=== PATIENT | male | born 1990 | race African-American/Black ===

== ENCOUNTER 2017-06-02 06:11 | Emergency (ER) | payer MEDICARE, MEDICAID ==
[~2017-06-02] VITALS: Ht 167.6 cm; Wt 77.0 kg
[2017-06-02] MEDS ORDERED: IBUPROFEN 600MG TABLET PO ONE (07:15)
[2017-06-02 07:41] VITALS: BP 122/79
== END 2017-06-02 07:59 | disposition home or self-care (01) ==
LOC: ER 07:35
DX: B35.3 Tinea pedis (principal); F32.9 Major depressive disorder, single episode, unspecified; F20.9 Schizophrenia, unspecified; F17.210 Nicotine dependence, cigarettes, uncomplicated; F15.10 Other stimulant abuse, uncomplicated; Z59.0 Homelessness
CPT/HCPCS: 99282

== ENCOUNTER 2017-06-20 12:01 | Emergency (ER) | payer MEDICARE, MEDICAID ==
[~2017-06-20] VITALS: Ht 172.7 cm; Wt 80.0 kg
[2017-06-20 12:11] VITALS: BP 123/62
== END 2017-06-20 17:16 | disposition left against medical advice (07) ==
LOC: ER 12:01
DX: J02.9 Acute pharyngitis, unspecified (principal); Z53.21 Procedure and treatment not carried out due to patient leaving prior to being seen by health care provider

== ENCOUNTER 2017-06-28 01:47 | Emergency (ER) | payer MEDICARE, MEDICAID ==
[~2017-06-28] VITALS: Ht 165.1 cm; Wt 62.0 kg
[2017-06-28 08:15] VITALS: BP 129/74
== END 2017-06-28 08:28 | disposition home or self-care (01) ==
LOC: ER 01:47
DX: R45.851 Suicidal ideations (principal); F20.9 Schizophrenia, unspecified; F31.9 Bipolar disorder, unspecified
CPT/HCPCS: 99283

== ENCOUNTER 2019-12-23 13:21 | Emergency (ER) | payer MEDICARE, MEDICAID ==
[~2019-12-23] VITALS: Ht 167.6 cm; Wt 90.0 kg
[2019-12-23 13:58] VITALS: BP 106/80
== END 2019-12-23 16:37 | disposition left against medical advice (07) ==
LOC: ER 13:21
DX: R68.89 Other general symptoms and signs (principal); Z53.21 Procedure and treatment not carried out due to patient leaving prior to being seen by health care provider

== ENCOUNTER 2023-12-02 14:30 | Emergency (ER) | payer MEDICARE, MEDICAID ==
[~2023-12-02] VITALS: Ht 175.3 cm; Wt 69.0 kg
[2023-12-02 14:54] VITALS: BP 143/93; PULSE 84; RESP 18; TEMP 98.4; O2SAT 98
[2023-12-02] MEDS ORDERED: SODIUM CHLORIDE 0.9% 1,000 ML IV ONE (15:15)
[2023-12-02 15:51] LABS: BASOPHILS % 0.1 % (0.0-2.0); EOSINOPHILS % 0.4 % (0.0-5.0); HEMATOCRIT. 40.5 % (42.0-52.0); HEMOGLOBIN. 13.2 g/dL (14.0-18.0); LYMPHOCYTES % 9.7 % (20.0-50.0); MEAN CORPUSCULAR HEMOGLOBIN 28.7 pg (28.0-32.0); MEAN CORPUSCULAR HGB CONC 32.6 g/dL (31.0-37.0); MEAN PLATELET VOLUME 7.6 fl (7.4-10.4); MONOCYTES % 6.4 % (2.0-8.0); NEUTROPHILS % 83.4 % (40.0-76.0); PLATELET 345 x1000/uL (130-400); RED CELL DISTRIBUTION WIDTH 13.6 % (11.6-14.6); WHITE BLOOD COUNT 6.4 x1000/uL (4.5-11.0)
[2023-12-02 15:56] LABS: ALANINE AMINOTRANSFERASE 25 IU/L (10-49); ALBUMIN 3.9 g/dL (3.2-4.8); ASPARTATE AMINOTRANSFERASE 30 IU/L (<34); BILIRUBIN TOTAL 0.5 mg/dL (0.1-1.0); CALCIUM 9.1 mg/dL (8.7-10.4); CARBON DIOXIDE 27 mEq/L (21-32); CHLORIDE 104 mEq/L (98-107); CREATININE 0.8 mg/dL (0.6-1.3); GLUCOSE 139 mg/dL (70-105); POTASSIUM 3.4 mEq/L (3.5-5.1); PROTEIN TOTAL 6.6 g/dL (6.0-8.3); SODIUM 138 mEq/L (136-145); UREA NITROGEN BLOOD 9 mg/dL (9-23)
[2023-12-02] MEDS ORDERED: POTASSIUM CHLORIDE 20MEQ TABLET SR PO NR (16:30)
[2023-12-02] MEDS ORDERED: NALO4SPR BOTHNSTRLS (16:55)
== END 2023-12-02 15:22 | disposition home or self-care (01) ==
LOC: ER 14:30
DX: T40.601A Poisoning by unspecified narcotics, accidental (unintentional), initial encounter (principal); F17.200 Nicotine dependence, unspecified, uncomplicated; Z86.59 Personal history of other mental and behavioral disorders; Y92.9 Unspecified place or not applicable
CPT/HCPCS: 99283; 96360; 80053; 85025; 36415; J7030